=== PATIENT | female | born 1950 | race Caucasian/White ===

== ENCOUNTER → 2016-11-16 | Outpatient (REF) | payer BC ==
[2016-11-16 11:41] LABS: ALBUMIN 3.6 GM/DL (3.2-5.2); ALBUMIN/GLOBULIN RATIO 1.09 (1.00-1.93); BILIRUBIN,TOTAL 0.4 MG/DL (0.2-1.0); CALCIUM LEVEL 9.7 MG/DL (8.8-10.2); CREATININE FOR GFR 1.21 MG/DL (0.55-1.02); FREE T4 1.24 NG/DL (0.76-1.46); GLOMERULAR FILTRATION RATE 47.2 (>45); POTASSIUM SERUM 4.4 MEQ/L (3.5-5.1); TOTAL PROTEIN 6.9 GM/DL (6.4-8.2)
== END ==
LOC: M SFHCADAM 09:46
PROVIDERS: ATTEND Nurse Practitioner Family
DX: E11.8 Type 2 diabetes mellitus with unspecified complications (principal); E03.9 Hypothyroidism, unspecified

== ENCOUNTER → 2017-04-29 | Outpatient (REF) | payer BC ==
[~2017-04-29] MED LIST: DIOV80TA3 PO; GLIM4TAB PO; HYDR12.55; LEVO125T4; LEVO50TA45 PO; METF10004 PO; NORCOTAB PO; OMEP20CA3; PRAV40TA2; SITA50TAB PO
[2017-04-29 14:56] LABS: ALBUMIN 3.5 GM/DL (3.2-5.2); BILIRUBIN,TOTAL 0.3 MG/DL (0.2-1.0); CREATININE FOR GFR 1.32 MG/DL (0.55-1.02); FREE T4 1.15 NG/DL (0.76-1.46); GLOMERULAR FILTRATION RATE 42.7 (>45); POTASSIUM SERUM 4.4 MEQ/L (3.5-5.1)
== END ==
LOC: M LAB REF 12:49
PROVIDERS: ATTEND Nurse Practitioner Family
DX: I10 Essential (primary) hypertension (principal)

== ENCOUNTER 2017-05-28 07:56 | Emergency (ER) | payer BC, OTHER ==
[~2017-05-28] VITALS: Ht 170.2 cm; Wt 101.0 kg
[2017-05-28] MEDS ORDERED: METF10004 PO (08:11)
[2017-05-28] MEDS ORDERED: LEVO50TA45 PO (08:11)
[2017-05-28] MEDS ORDERED: SITA50TAB PO (08:11)
[2017-05-28] MEDS ORDERED: DIOV80TA3 PO (08:11)
[2017-05-28] MEDS ORDERED: GLIM4TAB PO (08:11)
[2017-05-28] MEDS ORDERED: HYDR12.55 (08:53)
[2017-05-28] MEDS ORDERED: OMEP20CA3 (08:53)
[2017-05-28] MEDS ORDERED: PRAV40TA2 (08:53)
[2017-05-28] MEDS ORDERED: LEVO125T4 (08:53)
--- NOTE | 2017-05-28 09:39 | REP ---
RIGHT KNEE SERIES: FOUR VIEWS. HISTORY: Trauma. No comparison views. FINDINGS: The patient was apparently unable to position herself for the sunrise view which is, therefore, not obtained. There is mild osteoarthritic spurring in the medial and lateral compartments and moderate spurring in the patellofemoral compartment. A fabella is noted posterolaterally. In addition, there are faint calcifications at the posterolateral joint line which could conceivably represent loose bodies. No fracture is seen. There is diffuse osteopenia. There is some irregularity on lateral radiograph in one of the anterior femoral condyles, however, this appears chronic. IMPRESSION: 1. Osteoarthritic changes. 2. Possible loose bodies posterolaterally. 3. No acute traumatic abnormality. Signed by Ranulfo Cid MD 05/28/2017 03:27 P
--- NOTE | 2017-05-28 09:44 | REP ---
Duplex extremity venous ultrasound: Right lower extremity. History: Tenderness to palpation in the popliteal region and right lower extremity edema. Question DVT. Findings: The deep veins are anechoic and fully compressible from the groin to the popliteal fossa in the right lower extremity. Color flow imaging is homogeneous. Spectral Doppler interrogation demonstrates intact respiratory variation in flow and normal manual augmentation of flow. There is no evidence of deep vein thrombosis. Impression: Negative right lower extremity duplex venous ultrasound. No evidence of deep vein thrombosis. Signed by Ranulfo Cid MD 05/28/2017 09:35 A
[2017-05-28] MEDS ORDERED: NORCOTAB PO (10:44)
[2017-05-28 11:06] VITALS: BP 190/92
== END 2017-05-28 11:07 | disposition home or self-care (01) ==
LOC: M ED 07:56
DX: M17.11 Unilateral primary osteoarthritis, right knee (principal); Z87.891 Personal history of nicotine dependence

== ENCOUNTER → 2017-07-31 | Outpatient (REF) | payer BC ==
[2017-07-31 13:41] LABS: ALBUMIN 3.7 GM/DL (3.2-5.2); ALBUMIN/GLOBULIN RATIO 1.09 (1.00-1.93); BILIRUBIN,TOTAL 0.2 MG/DL (0.2-1.0); CALCIUM LEVEL 9.7 MG/DL (8.8-10.2); CREATININE FOR GFR 1.36 MG/DL (0.55-1.02); FREE T4 0.99 NG/DL (0.76-1.46); GLOMERULAR FILTRATION RATE 41.2 (>45); POTASSIUM SERUM 4.5 MEQ/L (3.5-5.1); TOTAL PROTEIN 7.1 GM/DL (6.4-8.2)
== END ==
LOC: M SFHCADAM 08:24
PROVIDERS: ATTEND Nurse Practitioner Family
DX: E03.9 Hypothyroidism, unspecified (principal); E11.8 Type 2 diabetes mellitus with unspecified complications; E78.2 Mixed hyperlipidemia

== ENCOUNTER → 2017-09-04 | Outpatient (CLI) | payer BC | LOC: M RAD 15:42 | DX: N18.3 Chronic kidney disease, stage 3 (moderate) (principal); E11.22 Type 2 diabetes mellitus with diabetic chronic kidney disease | CPT/HCPCS: 76775 ==

== ENCOUNTER → 2017-09-16 | Outpatient (CLI) | payer BC | LOC: M RAD 13:48 | DX: N13.39 Other hydronephrosis (principal) ==

== ENCOUNTER → 2017-10-28 | Outpatient (REF) | payer BC ==
[2017-10-28 19:15] LABS: BACTERIA, URINE LARGE AMOUNT; RBC, URINE 0-1 /hpf (0-3); SQUAMOUS EPITHELIAL CELL URINE SMALL AMOUNT /hpf (SMALL AMT); TRANSITIONAL EPI CELLS, URINE SMALL AMOUNT /hpf; WBC, URINE TNTC /hpf (0-3)
[2017-10-28 19:16] LABS: MUCUS, URINE MOD AMOUNT (NEGATIVE)
[2017-10-28 19:17] LABS: MICROSCOPIC EXAM PERFORMED
== END ==
LOC: M LAB REF 16:54
DX: N18.3 Chronic kidney disease, stage 3 (moderate) (principal)
CPT/HCPCS: 81015

== ENCOUNTER → 2017-11-15 | Outpatient (REF) | payer BC ==
[2017-11-15 13:57] LABS: MAU/CREAT RATIO 41.8 MCG/MG (0.0-30.0)
[2017-11-15 14:00] LABS: ALBUMIN 3.6 GM/DL (3.2-5.2); ALBUMIN/GLOBULIN RATIO 1.03 (1.00-1.93); ALKALINE PHOSPHATASE 62 U/L (45-117); ALT/SGPT 35 U/L (12-78); ANION GAP 9 MEQ/L (8-16); AST/SGOT 26 U/L (7-37); BILIRUBIN,TOTAL 0.4 MG/DL (0.2-1.0); BLOOD UREA NITROGEN 43 MG/DL (7-18); CALCIUM LEVEL 9.6 MG/DL (8.8-10.2); CARBON DIOXIDE LEVEL 25 MEQ/L (21-32); CHLORIDE LEVEL 110 MEQ/L (98-107); FREE T4 0.93 NG/DL (0.76-1.46); GLOMERULAR FILTRATION RATE 31.8 (>45); GLUCOSE, FASTING 143 MG/DL (70-100); POTASSIUM SERUM 4.3 MEQ/L (3.5-5.1); SODIUM LEVEL 144 MEQ/L (136-145); THYROID STIMULATING HORMONE 0.587 uIU/ML (0.358-3.740); TOTAL PROTEIN 7.1 GM/DL (6.4-8.2)
[2017-11-15 14:12] LABS: ESTIMATED AVERAGE GLUCOSE 163 MG/DL (60-110); HEMOGLOBIN A1c 7.3 %
[2017-11-15 14:22] LABS: TOTAL 25(OH) VITAMIN D 50.8 NG/ML (30.0-100.0)
== END ==
LOC: M SFHCPLAZ 08:06
DX: E11.8 Type 2 diabetes mellitus with unspecified complications (principal); E03.9 Hypothyroidism, unspecified; E55.9 Vitamin D deficiency, unspecified
CPT/HCPCS: 84443

== ENCOUNTER → 2018-02-18 | Outpatient (REF) | payer BC ==
[2018-02-18 13:19] LABS: ALBUMIN 3.5 GM/DL (3.2-5.2); ALKALINE PHOSPHATASE 65 U/L (45-117); ALT/SGPT 35 U/L (12-78); ANION GAP 8 MEQ/L (8-16); AST/SGOT 21 U/L (7-37); BILIRUBIN,TOTAL 0.3 MG/DL (0.2-1.0); BLOOD UREA NITROGEN 30 MG/DL (7-18); CALCIUM LEVEL 8.8 MG/DL (8.8-10.2); CARBON DIOXIDE LEVEL 26 MEQ/L (21-32); CHLORIDE LEVEL 111 MEQ/L (98-107); CREATININE FOR GFR 1.38 MG/DL (0.55-1.30); FREE T4 0.89 NG/DL (0.76-1.46); GLOMERULAR FILTRATION RATE 40.5 (>45); GLUCOSE, FASTING 146 MG/DL (70-100); POTASSIUM SERUM 4.5 MEQ/L (3.5-5.1); SODIUM LEVEL 145 MEQ/L (136-145)
[2018-02-18 13:41] LABS: MAU/CREAT RATIO 84.6 MCG/MG (0.0-30.0)
== END ==
LOC: M SFHCADAM 08:05
DX: E03.9 Hypothyroidism, unspecified (principal)

== ENCOUNTER → 2018-05-05 | Outpatient (REF) | payer BC ==
[2018-05-05 13:24] LABS: BACTERIA, URINE AUTO 1+ (NEGATIVE); MUCUS, URINE SMALL (NEGATIVE); RBC, URINE AUTO 1 /HPF (0-3); SQUAMOUS EPITHELIAL CELL UR AU 0 /HPF (0-6); WBC, URINE AUTO 21 /HPF (0-3)
== END ==
LOC: M LAB REF 13:00
DX: N18.3 Chronic kidney disease, stage 3 (moderate) (principal); R31.29 Other microscopic hematuria

== ENCOUNTER → 2018-06-21 | Outpatient (REF) | payer BC ==
[2018-06-21 13:51] LABS: ALBUMIN 3.8 GM/DL (3.2-5.2); ALBUMIN/GLOBULIN RATIO 1.12 (1.00-1.93); ALKALINE PHOSPHATASE 71 U/L (45-117); ALT/SGPT 37 U/L (12-78); ANION GAP 6 MEQ/L (8-16); AST/SGOT 25 U/L (7-37); BILIRUBIN,TOTAL 0.4 MG/DL (0.2-1.0); BLOOD UREA NITROGEN 36 MG/DL (7-18); CALCIUM LEVEL 9.4 MG/DL (8.8-10.2); CARBON DIOXIDE LEVEL 28 MEQ/L (21-32); CHLORIDE LEVEL 111 MEQ/L (98-107); CHOLESTEROL LEVEL 153 MG/DL (<200); CHOLESTEROL RISK RATIO 3.122 (<5); CREATININE FOR GFR 1.35 MG/DL (0.55-1.30); FREE T4 0.83 NG/DL (0.76-1.46); GLOMERULAR FILTRATION RATE 41.4 (>45); GLUCOSE, FASTING 153 MG/DL (70-100); HDL CHOLESTEROL 49 MG/DL (>40); LDL CHOLESTEROL 77 MG/DL (<100); NON-HDL-C 104 MG/DL; POTASSIUM SERUM 4.4 MEQ/L (3.5-5.1); SODIUM LEVEL 145 MEQ/L (136-145); TOTAL PROTEIN 7.2 GM/DL (6.4-8.2); TRIGLYCERIDES LEVEL 136 MG/DL (<150)
[2018-06-23 10:00] LABS: TOTAL 25(OH) VITAMIN D 36.1 NG/ML (30.0-100.0)
== END ==
LOC: M SFHCADAM 09:13
DX: E11.22 Type 2 diabetes mellitus with diabetic chronic kidney disease (principal); E03.9 Hypothyroidism, unspecified; E78.2 Mixed hyperlipidemia; E55.9 Vitamin D deficiency, unspecified
CPT/HCPCS: 84443

== ENCOUNTER → 2018-06-30 | Outpatient (CLI) | payer BC | LOC: M WHC 14:37 | DX: Z12.31 Encounter for screening mammogram for malignant neoplasm of breast (principal) | CPT/HCPCS: 77067 ==

== ENCOUNTER → 2018-10-16 | Outpatient (CLI) | payer BC ==
[~2018-10-16] MED LIST changes: +CALC600T57 PO; -LEVO125T4; +LEVO125T4 PO; +LOSA50TA88 PO; +OMEG10002 PO; +ONETAB35 PO; +PEPCCHW3 PO; -PRAV40TA2; +PRAV40TA2 PO; +SYST1SOL OP; +VITA-122 PO
[2018-10-16 19:34] LABS: CALCIUM LEVEL 9.4 MG/DL (8.8-10.2); CREATININE FOR GFR 1.43 MG/DL (0.55-1.30); GLOMERULAR FILTRATION RATE 38.7 (>45); POTASSIUM SERUM 4.1 MEQ/L (3.5-5.1)
[2018-10-16 19:46] LABS: MEAN CORPUSCULAR HEMOGLOBIN 33.1 pg (27.0-33.0); MEAN CORPUSCULAR HGB CONC 33.3 g/dl (32.0-36.5); MEAN CORPUSCULAR VOLUME 99.4 fl (80.0-96.0); PLATELET COUNT, AUTOMATED 226 10^3/uL (150-450); RED BLOOD COUNT 3.62 10^6/uL (4.00-5.40); WHITE BLOOD COUNT 7.7 10^3/uL (4.0-10.0)
== END ==
LOC: M LABDRWAD 16:31
PROVIDERS: ATTEND Podiatrist Foot & Ankle Surgery
DX: M25.541 Pain in joints of right hand (principal)

== ENCOUNTER 2018-10-29 08:33 | Day surgery (SDC) | payer BC ==
[~2018-10-29] VITALS: Ht 170.2 cm; Wt 91.6 kg
[~2018-10-29 08:33] MED LIST changes: +BUPIVACAINE HCL 0.5% 10 ML VIAL As Ordered ONE; +LIDOCAINE 1% MDV 20ML VIAL As Ordered ONE; +LR 1,000 ML IV ONE; +dexameTHASONE 4 MG/ML 1ML VIAL (J1100) As Ordered ONE
[2018-10-29] MEDS ORDERED: ONDANSETRON 4MG/2ML VIAL (J2405) As Ordered ONE (10:23)
[2018-10-29] MEDS ORDERED: LIDOCAINE 2% INJ 100 MG/5 ML SDV (FOR ANES.) As Ordered ONE (10:23)
[2018-10-29] MEDS ORDERED: PROPOFOL 200 MG/20 ML VIAL As Ordered ONE (10:23)
[2018-10-29] MEDS ORDERED: dexameTHASONE 4 MG/ML 1ML VIAL (J1100) As Ordered ONE (10:23)
[2018-10-29] MEDS ORDERED: MIDAZOLAM INJ 2 MG/2 ML VIAL (J2250) As Ordered ONE (10:25)
[2018-10-29] MEDS ORDERED: fentaNYL 100 MCG/2 ML INJECTION (J3010) As Ordered ONE (10:25)
[2018-10-29] MEDS ORDERED: HYDR-3713 PO (12:13)
[2018-10-29 13:00] VITALS: BP 155/83
--- NOTE | 2018-10-29 13:37 | RO ---
DATE OF PROCEDURE: 10/29/2018 PREPROCEDURE DIAGNOSIS: Right second metatarsal deformity and osteoarthritis. POSTPROCEDURE DIAGNOSIS: Right second metatarsal deformity and osteoarthritis. PROCEDURE: Right second metatarsal palangeal joint cheilectomy and osteotomy. SURGEON: Dr. Ian Miller [place] GROOM: None. ANESTHESIA: Monitored anesthesia care. Preoperative injection of 15 mL of 1:1 mixture of 1% lidocaine plain and 0.5% Marcaine plain. ESTIMATED BLOOD LOSS: Minimal. MATERIALS: #4-0 Vicryl, $4-0 nylon, and an Arthrex 2.5 headless compression screw. COMPLICATIONS: None. CONDITION: Stable. Ale Banks is a 68-year-old female who presents to [facility] with the complaints of painful second toe joint. She has had previous surgery to this site and about 1 years ago, she sustained injury causing fracture to the toe. She initially healed well but has subsequently developed worsening arthritis and pain. She presents today for surgical correction. The patient's side and site were identified and marked in the preoperative holding area. Consent was reviewed and obtained. All risks, complications and alternatives to the procedure were explained to the patient in detail and all questions were answered. DESCRIPTION OF PROCEDURE: The patient was brought to the operating room and placed on the operating room table in the supine position. Monitored anesthesia care was carried out by the anesthesia team. Preoperative injection of 15 mL of 1:1 mixture of 1% lidocaine plain and 0.5% Marcaine plain was injected into the right foot. The right foot was prepped and draped in the normal sterile fashion. The patient received Ancef preoperatively. A tourniquet was applied to right ankle and inflated to 250 mmHg. A dorsal incision was carried through over the previous scar and site over the second toe and metatarsophalangeal joint. This was carried through with a #15 blade. Significant scar tissue was immediately identified. Dissection was taken to find the extensor tendon which was in poor condition with some tears apparently coming from the osteophytes immediately beneath the extensor tendon, which was then retracted where large osteophytes over the dorsal surface of the joint. These were dissected and removed with rongeur. The metatarsal head and base had large exostoses which were removed with rongeur and smoothed with a rasp. There is significant cartilage erosion on both sides of the joint. There is some remaining viable cartilage, which was displaced medially likely from fracture. An osteotomy was then performed in the second metatarsal head and neck transposing it proximally as well as rotating the cartilage surface forward. This was fixated with an Arthrex 2.5 mm screw. The remaining bone ledge was resected with rongeur and smoothed with a rasp. The plate was irrigated with normal saline. Capsular repair was performed with #3-0 Vicryl. The extensor tendon was repaired with #3-0 Vicryl. Subcutaneous closure with #4-0 Vicryl and skin closure with #4-0 nylon. 1 mL Decadron was injected. Sterile dressing was applied. The tourniquet was deflated. Patient was brought to the postanesthesia care unit (PACU) with vital signs stable and neurovascular status intact. She will be partial weightbearing as tolerated. She will followup in the office in two days. CHE
== END 2018-10-29 13:10 | disposition home or self-care (01) ==
LOC: M SDC 08:33
PROVIDERS: ATTEND Podiatrist Foot & Ankle Surgery
DX: M19.071 Primary osteoarthritis, right ankle and foot (principal); M21.6X1 Other acquired deformities of right foot; E11.9 Type 2 diabetes mellitus without complications; I10 Essential (primary) hypertension; E78.5 Hyperlipidemia, unspecified; E03.9 Hypothyroidism, unspecified; K21.9 Gastro-esophageal reflux disease without esophagitis; Z87.891 Personal history of nicotine dependence; Z79.899 Other long term (current) drug therapy
CPT/HCPCS: 28308; 28899; 88300; 97116; C1713; J0690; J1100; J2250; J2405; J3010

== ENCOUNTER → 2018-12-26 | Outpatient (REF) | payer BC ==
[~2018-12-26] MED LIST changes: -BUPIVACAINE HCL 0.5% 10 ML VIAL As Ordered ONE; +HYDR-3713 PO; +HYDR-3715 PO; -LIDOCAINE 1% MDV 20ML VIAL As Ordered ONE; -LR 1,000 ML IV ONE; -NORCOTAB PO; -dexameTHASONE 4 MG/ML 1ML VIAL (J1100) As Ordered ONE
[2018-12-26 13:41] LABS: MAU/CREAT RATIO 152.3 MCG/MG (0.0-30.0)
[2018-12-26 14:52] LABS: HEMOGLOBIN A1c 9.3 %
[2018-12-26 15:00] LABS: ALBUMIN 3.5 GM/DL (3.2-5.2); BILIRUBIN,TOTAL 0.5 MG/DL (0.2-1.0); CREATININE FOR GFR 1.35 MG/DL (0.55-1.30); FREE T4 1.11 NG/DL (0.76-1.46); GLOMERULAR FILTRATION RATE 41.4 (>45); POTASSIUM SERUM 4.7 MEQ/L (3.5-5.1); THYROID STIMULATING HORMONE 4.57 uIU/ML (0.358-3.740); TOTAL 25(OH) VITAMIN D 47.4 NG/ML (30.0-100.0)
== END ==
LOC: M SFHCADAM 08:03
PROVIDERS: ATTEND Nurse Practitioner Family
DX: E11.22 Type 2 diabetes mellitus with diabetic chronic kidney disease (principal); E03.9 Hypothyroidism, unspecified; E55.9 Vitamin D deficiency, unspecified

== ENCOUNTER → 2019-03-05 | Outpatient (REF) | payer BC ==
[~2019-03-05] MED LIST changes: -OMEP20CA3; +OMEP20CA4
[2019-03-05 15:12] LABS: BACTERIA, URINE AUTO NEGATIVE (NEGATIVE); MUCUS, URINE SMALL (NEGATIVE); RBC, URINE AUTO 0 /HPF (0-3); SQUAMOUS EPITHELIAL CELL UR AU 0 /HPF (0-6); WBC, URINE AUTO 2 /HPF (0-3)
== END ==
LOC: M LAB REF 13:32
PROVIDERS: ATTEND Internal Medicine Nephrology
DX: N18.3 Chronic kidney disease, stage 3 (moderate) (principal)

== ENCOUNTER → 2019-04-03 | Outpatient (REF) | payer BC ==
[~2019-04-03] MED LIST changes: +LANTINJ4 SC
[2019-04-03 13:37] LABS: ALBUMIN 3.6 GM/DL (3.2-5.2); BILIRUBIN,TOTAL 0.3 MG/DL (0.2-1.0); CALCIUM LEVEL 9.2 MG/DL (8.8-10.2); CREATININE FOR GFR 1.45 MG/DL (0.55-1.30); FREE T4 1.13 NG/DL (0.76-1.46); GLOMERULAR FILTRATION RATE 38.1 (>45); HEMOGLOBIN A1c 6.8 %; POTASSIUM SERUM 4.8 MEQ/L (3.5-5.1); THYROID STIMULATING HORMONE 1.76 uIU/ML (0.358-3.740)
[2019-04-03 13:45] LABS: MAU/CREAT RATIO 140.1 MCG/MG (0.0-30.0)
== END ==
LOC: M SFHCADAM 08:09
PROVIDERS: ATTEND Nurse Practitioner Family
DX: E11.22 Type 2 diabetes mellitus with diabetic chronic kidney disease (principal); E03.9 Hypothyroidism, unspecified

== ENCOUNTER 2019-04-23 07:50 | Day surgery (SDC) | payer BC ==
[~2019-04-23] VITALS: Ht 170.2 cm; Wt 88.4 kg
[2019-04-23] MEDS ORDERED: NS 1,000 ML IV ONE (08:30)
[2019-04-23] MEDS ORDERED: PROPOFOL 200 MG/20 ML VIAL As Ordered ONE ×4 (08:54→09:29)
--- NOTE | 2019-04-23 09:54 | ROOR ---
Patient Name: Ale Banks Procedure Date: 04/23/2019 8:52 AM Date of : 1950 Age: 68 Room: [facility] Gender: Female Note Status: Finalized Procedure: Colonoscopy Indications: High risk colon cancer surveillance: Personal history of colonic polyps Providers: Adriano CORREA MD Referring MD: Nicky Banks NP Requesting Provider: Medicines: Monitored Anesthesia Care Complications: No immediate complications. Procedure: Pre-Anesthesia Assessment: - The heart rate, respiratory rate, oxygen saturations, blood pressure, adequacy of pulmonary ventilation, and response to care were monitored throughout the procedure. The Colonoscope was introduced through the anus and advanced to the terminal ileum, with identification of the appendiceal orifice and IC valve. The colonoscopy was performed without difficulty. The patient tolerated the procedure well. The quality of the bowel preparation was good. Findings: The perianal and digital rectal examinations were normal. Four flat polyps were found in the ascending colon and cecum. The polyps were 8 to 12 mm in size. Area was successfully injected with 5 mL Eleview for a lift polypectomy. These polyps were removed with a piecemeal technique using a hot snare. Resection and retrieval were complete. A 8 mm polyp was found in the splenic flexure. The polyp was flat. The polyp was removed with a piecemeal technique using a cold snare. Resection and retrieval were complete. Mild sigmoid diverticulosis and small internal hemorrhoids. Impression: - Four 8 to 12 mm polyps in the ascending colon and in the cecum, removed piecemeal using a hot snare. Resected and retrieved. Injected. - One 8 mm polyp at the splenic flexure, removed piecemeal using a cold snare. Resected and retrieved. - Mild sigmoid diverticulosis and small internal hemorrhoids. - The examination was otherwise normal. Recommendation: - Await pathology results. - Telephone endoscopist for pathology results in 2 weeks. - Repeat colonoscopy in 1-3 years for surveillance based on pathology results. Adriano Correa MD Adriano CORREA MD 04/23/2019 9:54:00 AM Electronically signed by Adriano CORREA MD Number of Addenda: 0 Note Initiated On: 04/23/2019 8:52 AM Estimated Blood Loss: Estimated blood loss: none.
[2019-04-23 10:16] VITALS: BP 163/88
== END 2019-04-23 10:50 | disposition home or self-care (01) ==
LOC: M OPP 07:50
PROVIDERS: ATTEND Internal Medicine Gastroenterology
DX: Z86.010 Personal history of colon polyps (principal); D12.2 Benign neoplasm of ascending colon; D12.0 Benign neoplasm of cecum; D12.3 Benign neoplasm of transverse colon; E11.9 Type 2 diabetes mellitus without complications; Z79.4 Long term (current) use of insulin; Z79.891 Long term (current) use of opiate analgesic; Z79.899 Other long term (current) drug therapy; Z88.5 Allergy status to narcotic agent

== ENCOUNTER → 2019-07-04 | Outpatient (REF) | payer BC ==
[~2019-07-04] MED LIST changes: -GLIM4TAB PO; +GLIM4TAB3 PO
[2019-07-04 13:19] LABS: ALBUMIN 3.7 GM/DL (3.2-5.2); BILIRUBIN,TOTAL 0.5 MG/DL (0.2-1.0); CALCIUM LEVEL 9.6 MG/DL (8.8-10.2); CHOLESTEROL RISK RATIO 2.452 (<5); CREATININE FOR GFR 1.32 MG/DL (0.55-1.30); FREE T4 1.02 NG/DL (0.76-1.46); GLOMERULAR FILTRATION RATE 42.4 (>39); POTASSIUM SERUM 4.6 MEQ/L (3.5-5.1); THYROID STIMULATING HORMONE 1.49 uIU/ML (0.358-3.740)
== END ==
LOC: M SFHCADAM 08:03
PROVIDERS: ATTEND Nurse Practitioner Family
DX: E11.22 Type 2 diabetes mellitus with diabetic chronic kidney disease (principal); E03.9 Hypothyroidism, unspecified; E78.2 Mixed hyperlipidemia

== ENCOUNTER → 2019-09-15 | Outpatient (REF) | payer BC ==
[~2019-09-15] MED LIST changes: -GLIM4TAB3 PO; +GLIM4TAB5 PO; +OMEP1CAP73; -OMEP20CA4
[2019-09-15 17:52] LABS: ALBUMIN 3.9 GM/DL (3.2-5.2); BILIRUBIN,TOTAL 0.5 MG/DL (0.2-1.0); CALCIUM LEVEL 9.7 MG/DL (8.8-10.2); CREATININE FOR GFR 1.48 MG/DL (0.55-1.30); FREE T4 1.1 NG/DL (0.76-1.46); GLOMERULAR FILTRATION RATE 37.1 (>39); POTASSIUM SERUM 4.5 MEQ/L (3.5-5.1); THYROID STIMULATING HORMONE 6.41 uIU/ML (0.358-3.740); TOTAL PROTEIN 7.2 GM/DL (6.4-8.2)
== END ==
LOC: M SFHCADAM 14:52
PROVIDERS: ATTEND Nurse Practitioner Family
DX: E11.22 Type 2 diabetes mellitus with diabetic chronic kidney disease (principal); E03.9 Hypothyroidism, unspecified

== ENCOUNTER → 2019-11-27 | Outpatient (REF) | payer BC ==
[2019-11-27 10:46] LABS: ALBUMIN 3.6 GM/DL (3.2-5.2); BILIRUBIN,TOTAL 0.5 MG/DL (0.2-1.0); CALCIUM LEVEL 9.7 MG/DL (8.8-10.2); CHOLESTEROL RISK RATIO 2.614 (<5); CREATININE FOR GFR 1.2 MG/DL (0.55-1.30); FREE T4 0.86 NG/DL (0.76-1.46); GLOMERULAR FILTRATION RATE 47.3 (>39); MAGNESIUM LEVEL 2.1 MG/DL (1.8-2.4); POTASSIUM SERUM 4.7 MEQ/L (3.5-5.1); THYROID STIMULATING HORMONE 2.56 uIU/ML (0.358-3.740); TOTAL PROTEIN 7.3 GM/DL (6.4-8.2)
[2019-11-27 10:48] LABS: TOTAL 25(OH) VITAMIN D 52.1 NG/ML (30.0-100.0)
[2019-11-27 10:56] LABS: HEMOGLOBIN A1c 7.3 %
[2019-11-27 11:15] LABS: MAU/CREAT RATIO 117.3 MCG/MG (0.0-30.0)
== END ==
LOC: M SFHCADAM 08:16
PROVIDERS: ATTEND Nurse Practitioner Family
DX: E11.22 Type 2 diabetes mellitus with diabetic chronic kidney disease (principal); N18.9 Chronic kidney disease, unspecified; E03.9 Hypothyroidism, unspecified; E78.2 Mixed hyperlipidemia; M62.830 Muscle spasm of back

== ENCOUNTER → 2020-05-27 | Outpatient (REF) | payer BC ==
[2020-05-27 14:00] LABS: ALBUMIN 3.6 GM/DL (3.2-5.2); BILIRUBIN,TOTAL 0.4 MG/DL (0.2-1.0); CALCIUM LEVEL 9.6 MG/DL (8.8-10.2); CREATININE FOR GFR 1.26 MG/DL (0.55-1.30); FREE T4 1.11 NG/DL (0.76-1.46); GLOMERULAR FILTRATION RATE 44.6 (>39); POTASSIUM SERUM 4.6 MEQ/L (3.5-5.1); THYROID STIMULATING HORMONE 0.287 uIU/ML (0.358-3.740); TOTAL PROTEIN 7.1 GM/DL (6.4-8.2)
[2020-05-27 14:03] LABS: MAU/CREAT RATIO 166.9 MCG/MG (0.0-30.0)
== END ==
LOC: M SFHCADAM 08:14
PROVIDERS: ATTEND Nurse Practitioner Family
DX: E11.22 Type 2 diabetes mellitus with diabetic chronic kidney disease (principal); E03.9 Hypothyroidism, unspecified; N18.30 Chronic kidney disease, stage 3 unspecified

== ENCOUNTER → 2020-11-30 | Outpatient (REF) | payer BC ==
[2020-11-30 14:27] LABS: ALBUMIN 3.9 GM/DL (3.2-5.2); BILIRUBIN,TOTAL 0.4 MG/DL (0.2-1.0); CALCIUM LEVEL 9.9 MG/DL (8.8-10.2); CHOLESTEROL RISK RATIO 2.948 (<5); CREATININE FOR GFR 1.3 MG/DL (0.55-1.30); FREE T4 1.03 NG/DL (0.76-1.46); POTASSIUM SERUM 4.4 MEQ/L (3.5-5.1); THYROID STIMULATING HORMONE 2.26 uIU/ML (0.358-3.740); TOTAL 25(OH) VITAMIN D 35.7 NG/ML (30.0-100.0); TOTAL PROTEIN 7.4 GM/DL (6.4-8.2)
[2020-11-30 14:42] LABS: HEMOGLOBIN A1c 6.7 %
== END ==
LOC: M SFHCADAM 08:03
PROVIDERS: ATTEND Nurse Practitioner Family
DX: E03.9 Hypothyroidism, unspecified (principal); I10 Essential (primary) hypertension; E11.22 Type 2 diabetes mellitus with diabetic chronic kidney disease; E78.2 Mixed hyperlipidemia; E55.9 Vitamin D deficiency, unspecified

== ENCOUNTER → 2021-11-13 | Outpatient (REF) | payer BC ==
[~2021-11-13] MED LIST changes: +LOSA50TA28 PO; -LOSA50TA88 PO
[2021-11-13 12:40] LABS: MAU/CREAT RATIO 180.5 MCG/MG (0.0-30.0)
[2021-11-13 13:18] LABS: ALBUMIN 3.7 GM/DL (3.2-5.2); BILIRUBIN,TOTAL 0.4 MG/DL (0.2-1.0); CALCIUM LEVEL 9.5 MG/DL (8.8-10.2); CHOLESTEROL RISK RATIO 2.684 (<5); CREATININE FOR GFR 1.34 MG/DL (0.55-1.30); FREE T4 1.02 NG/DL (0.76-1.46); GLOMERULAR FILTRATION RATE 41.4 (>39); POTASSIUM SERUM 4.7 MEQ/L (3.5-5.1); THYROID STIMULATING HORMONE 0.837 uIU/ML (0.358-3.740); TOTAL PROTEIN 7.1 GM/DL (6.4-8.2)
[2021-11-13 13:22] LABS: TOTAL 25(OH) VITAMIN D 44.3 NG/ML (30.0-100.0)
[2021-11-13 14:24] LABS: HEMOGLOBIN A1c 7.5 %
== END ==
LOC: M LABDRWAD 11:57
PROVIDERS: ATTEND Nurse Practitioner Adult Health
DX: E78.2 Mixed hyperlipidemia (principal); E11.22 Type 2 diabetes mellitus with diabetic chronic kidney disease; E03.9 Hypothyroidism, unspecified; E55.9 Vitamin D deficiency, unspecified

== ENCOUNTER → 2022-05-11 | Outpatient (REF) | payer BC ==
[~2022-05-11] MED LIST changes: -SYST1SOL OP; +SYST1SOL OU; +VITA100093 PO
[2022-05-11 14:34] LABS: HEMATOCRIT 39.8 % (36.0-47.0); MEAN CORPUSCULAR HEMOGLOBIN 32.7 pg (27.0-33.0); MEAN CORPUSCULAR HGB CONC 32.7 g/dl (32.0-36.5); MEAN CORPUSCULAR VOLUME 100.3 fl (80.0-96.0); PLATELET COUNT, AUTOMATED 245 10^3/uL (150-450); RED BLOOD COUNT 3.97 10^6/uL (4.00-5.40); WHITE BLOOD COUNT 7.1 10^3/uL (4.0-10.0)
[2022-05-11 15:17] LABS: ALBUMIN 3.6 GM/DL (3.2-5.2); BILIRUBIN,TOTAL 0.4 MG/DL (0.2-1.0); CALCIUM LEVEL 9.5 MG/DL (8.8-10.2); CHOLESTEROL RISK RATIO 2.491 (<5); CREATININE FOR GFR 1.48 MG/DL (0.55-1.30); GLOMERULAR FILTRATION RATE 36.9 (>39); POTASSIUM SERUM 4.6 MEQ/L (3.5-5.1); TOTAL PROTEIN 7.3 GM/DL (6.4-8.2)
[2022-05-11 15:31] LABS: MAU/CREAT RATIO 146.2 MCG/MG (0.0-30.0)
[2022-05-11 15:44] LABS: TOTAL 25(OH) VITAMIN D 64.1 NG/ML (30.0-100.0)
[2022-05-11 16:22] LABS: HEMOGLOBIN A1c 6.5 %
== END ==
LOC: M LABDRWAD 12:32
PROVIDERS: ATTEND Nurse Practitioner Adult Health
DX: E11.22 Type 2 diabetes mellitus with diabetic chronic kidney disease (principal); E55.9 Vitamin D deficiency, unspecified; I10 Essential (primary) hypertension; E78.2 Mixed hyperlipidemia

== ENCOUNTER → 2022-05-20 | Outpatient (CLI) | payer BC | LOC: M LABSMTC 10:14 | PROVIDERS: ATTEND Anesthesiology | DX: Z01.812 Encounter for preprocedural laboratory examination (principal); Z11.52 Encounter for screening for COVID-19 ==

== ENCOUNTER 2022-05-23 06:48 | Day surgery (SDC) | payer BC ==
[~2022-05-23] VITALS: Ht 170.2 cm; Wt 91.5 kg
[~2022-05-23 06:48] MED LIST changes: +ceFAZolin SOD 2 GM in IV 1 EA IV ONE
[2022-05-23] MEDS ORDERED: INSULIN LISPRO (NovoLOG) PER UNIT SC PRN (07:25)
[2022-05-23] MEDS ORDERED: LR 1,000 ML IV SCH ×2 (07:25→12:15)
[2022-05-23] MEDS ORDERED: dexameTHASONE 4 MG/ML 1ML VIAL (J1100 PER 1MG) As Ordered ONE (08:07)
[2022-05-23] MEDS ORDERED: ONDANSETRON 4MG 2ML VIAL As Ordered ONE (08:07)
[2022-05-23] MEDS ORDERED: fentaNYL 250 MCG/5 ML INJECTION As Ordered ONE (08:07)
[2022-05-23] MEDS ORDERED: propofoL 200 MG/20 ML VIAL As Ordered ONE (08:07)
[2022-05-23] MEDS ORDERED: MIDAZOLAM INJ 2MG/2ML VIAL (J2250 PER 1MG) As Ordered ONE (08:07)
[2022-05-23] MEDS ORDERED: LIDOCAINE 2% 100MG/5ML SDV (FOR ANES.) As Ordered ONE (08:07)
[2022-05-23] MEDS ORDERED: LIDOCAINE 1% SDV 30ML VIAL As Ordered ONE (09:27)
[2022-05-23] MEDS ORDERED: BUPIVACAINE HCL 0.5% 30ML VIAL As Ordered ONE (09:28)
[2022-05-23] MEDS ORDERED: METOCLOPRAMIDE INJ 10MG/2ML VIAL (J2765 PER 1) As Ordered ONE (10:11)
[2022-05-23] MEDS ORDERED: ACETAMINOPHEN 1000MG 100ML IV BTL (OFIRMEV) (J0131 PER 10MG) As Ordered ONE (10:11)
[2022-05-23] MEDS ORDERED: ePHEDrine SULFATE 25 MG/5 ML(5MG/ML) SYRINGE As Ordered ONE (10:11)
[2022-05-23] MEDS ORDERED: PROMETHAZINE 25MG/ML 1ML VIAL IV PRN (12:15)
[2022-05-23] MEDS ORDERED: oxyCODONE 5MG TAB PO PRN (12:15)
[2022-05-23] MEDS ORDERED: ONDANSETRON 4MG 2ML VIAL IV PRN (12:15)
[2022-05-23 13:30] VITALS: BP 135/69
== END 2022-05-23 13:47 | disposition home or self-care (01) ==
LOC: M SDC 06:48
PROVIDERS: ATTEND Podiatrist Foot & Ankle Surgery
DX: M21.612 Bunion of left foot (principal); M20.12 Hallux valgus (acquired), left foot; M20.42 Other hammer toe(s) (acquired), left foot; I12.9 Hypertensive chronic kidney disease with stage 1 through stage 4 chronic kidney disease, or unspecified chronic kidney disease; E11.22 Type 2 diabetes mellitus with diabetic chronic kidney disease; E03.9 Hypothyroidism, unspecified; E78.2 Mixed hyperlipidemia; N18.32 Chronic kidney disease, stage 3b; K76.0 Fatty (change of) liver, not elsewhere classified; M51.9 Unspecified thoracic, thoracolumbar and lumbosacral intervertebral disc disorder; Z79.899 Other long term (current) drug therapy; Z79.4 Long term (current) use of insulin; Z79.890 Hormone replacement therapy; Z79.84 Long term (current) use of oral hypoglycemic drugs; Z88.5 Allergy status to narcotic agent; Z88.8 Allergy status to other drugs, medicaments and biological substances
CPT/HCPCS: 28010; 28285; 28297; 28298; 28308; 88300; 97116; 97161; C1713; J0131; J0690; J2250; J2405; J2765; J3010

== ENCOUNTER 2023-01-24 07:46 | Day surgery (SDC) | payer BC ==
[~2023-01-24] VITALS: Ht 170.2 cm; Wt 90.1 kg
[~2023-01-24 07:46] MED LIST changes: +EXCETAB32 PO; +NS 1,000 ML IV ONE; -ceFAZolin SOD 2 GM in IV 1 EA IV ONE
[2023-01-24] MEDS ORDERED: LIDOCAINE 2% 100MG/5ML SDV (FOR ANES.) As Ordered ONE (09:07)
[2023-01-24] MEDS ORDERED: propofoL 200 MG/20 ML VIAL As Ordered ONE ×2 (09:08→10:04)
[2023-01-24] MEDS ORDERED: ATROPINE SULF 0.4 MG/ML 1ML VIAL As Ordered ONE (09:31)
[2023-01-24 10:28] VITALS: BP 178/82
== END 2023-01-24 10:31 | disposition home or self-care (01) ==
LOC: M OPP 07:46
PROVIDERS: ATTEND Internal Medicine Gastroenterology
DX: Z86.010 Personal history of colon polyps (principal); D12.2 Benign neoplasm of ascending colon; D17.79 Benign lipomatous neoplasm of other sites; K57.30 Diverticulosis of large intestine without perforation or abscess without bleeding; K64.8 Other hemorrhoids; I10 Essential (primary) hypertension; E78.5 Hyperlipidemia, unspecified; E11.9 Type 2 diabetes mellitus without complications; E03.9 Hypothyroidism, unspecified; K21.9 Gastro-esophageal reflux disease without esophagitis; M19.90 Unspecified osteoarthritis, unspecified site; G43.909 Migraine, unspecified, not intractable, without status migrainosus; Z87.891 Personal history of nicotine dependence; Z88.5 Allergy status to narcotic agent; Z79.4 Long term (current) use of insulin; Z79.84 Long term (current) use of oral hypoglycemic drugs; Z79.890 Hormone replacement therapy; Z79.899 Other long term (current) drug therapy; Z82.49 Family history of ischemic heart disease and other diseases of the circulatory system; Z80.51 Family history of malignant neoplasm of kidney; Z80.8 Family history of malignant neoplasm of other organs or systems
CPT/HCPCS: 45385; 88305; J0461

== ENCOUNTER 2023-04-08 19:23 | Emergency (ER) | payer BC ==
[~2023-04-08] VITALS: Ht 170.2 cm; Wt 93.6 kg
[~2023-04-08 19:23] MED LIST changes: -NS 1,000 ML IV ONE
[2023-04-08 20:09] VITALS: TEMP 96.6
[2023-04-08] MEDS ORDERED: ONDANSETRON 4MG 2ML VIAL IV ONE (20:35)
[2023-04-08] MEDS: MORPHINE 4 MG/ML 1ML VIAL IV PRN ×2 (20:38→21:51)
[2023-04-08] MEDS ORDERED: KETAMINE HCL 200MG/20ML VIAL IV ONE (22:05)
[2023-04-08] MEDS ORDERED: NS 1,000 ML IV SCH (22:05)
[2023-04-08] MEDS ORDERED: propofoL 200 MG/20 ML VIAL IV.PROC PRN (22:05)
[2023-04-08 23:00] VITALS: BP 178/89; O2SAT 97
== END 2023-04-09 01:40 | disposition home or self-care (01) ==
LOC: M ED 19:23 → EDBD 19:23 → M ED 04-09 01:40
DX: S43.004A Unspecified dislocation of right shoulder joint, initial encounter (principal); W01.0XXA Fall on same level from slipping, tripping and stumbling without subsequent striking against object, initial encounter; Y92.009 Unspecified place in unspecified non-institutional (private) residence as the place of occurrence of the external cause; Y93.01 Activity, walking, marching and hiking; Y99.8 Other external cause status; E03.9 Hypothyroidism, unspecified; E11.9 Type 2 diabetes mellitus without complications; E78.2 Mixed hyperlipidemia; N18.9 Chronic kidney disease, unspecified; E66.9 Obesity, unspecified; Z88.5 Allergy status to narcotic agent; Z79.899 Other long term (current) drug therapy; Z79.4 Long term (current) use of insulin; Z79.82 Long term (current) use of aspirin
CPT/HCPCS: 23655; 73020; 73030; 73060; 73090; 93041; 94760; 96361; 96365; 96375; 99152; 99285; J2405

== ENCOUNTER → 2023-05-06 | Outpatient (REF) | payer BC ==
[2023-05-06 13:33] LABS: HEMATOCRIT 38.3 % (36.0-47.0); HEMOGLOBIN 12.5 g/dl (12.0-15.5); MEAN CORPUSCULAR HEMOGLOBIN 33.2 pg (27.0-33.0); MEAN CORPUSCULAR HGB CONC 32.6 g/dl (32.0-36.5); MEAN CORPUSCULAR VOLUME 101.6 fl (80.0-96.0); PLATELET COUNT, AUTOMATED 254 10^3/uL (150-450); RED BLOOD COUNT 3.77 10^6/uL (4.00-5.40); WHITE BLOOD COUNT 7.5 10^3/uL (4.0-10.0)
[2023-05-06 14:05] LABS: THYROID STIMULATING HORMONE 5.978 uIU/ML (0.55-4.78); TOTAL 25(OH) VITAMIN D 82.2 NG/ML (20.0-100.0)
[2023-05-06 14:06] LABS: FREE T4 1.12 NG/DL (0.89-1.76)
[2023-05-06 14:11] LABS: ALBUMIN 3.9 G/DL (3.2-5.2); BILIRUBIN,TOTAL 0.4 MG/DL (0.3-1.2); CALCIUM LEVEL 9.8 MG/DL (8.3-10.6); CHOLESTEROL RISK RATIO 2.8 (<5); CREATININE FOR GFR 1.26 MG/DL (0.55-1.30); GLOMERULAR FILTRATION RATE 44.3 (>39); HDL CHOLESTEROL 50.6 MG/DL (>40); LDL CHOLESTEROL 61.8 MG/DL (<100); MAGNESIUM LEVEL 1.9 MG/DL (1.8-2.4); NON-HDL-C 91.4 MG/DL; POTASSIUM SERUM 4.7 MMOL/L (3.5-5.1); TOTAL PROTEIN 7.2 G/DL (5.7-8.2)
[2023-05-06 14:20] LABS: CREATININE, URINE 125.8 MG/DL; MAU/CREAT RATIO 163.7 MCG/MG (0.0-30.0)
[2023-05-06 14:22] LABS: HEMOGLOBIN A1c 6.2 % (4.0-6.0)
== END ==
LOC: M SFHCPLAZ 10:11
PROVIDERS: ATTEND Nurse Practitioner Adult Health
DX: E11.22 Type 2 diabetes mellitus with diabetic chronic kidney disease (principal); I10 Essential (primary) hypertension; E03.9 Hypothyroidism, unspecified; E78.2 Mixed hyperlipidemia; M62.830 Muscle spasm of back; E55.9 Vitamin D deficiency, unspecified

== ENCOUNTER → 2024-02-04 | Outpatient (REF) | payer BC ==
[2024-02-04 18:25] LABS: TOTAL PROTEIN,RANDOM URINE 46.1 MG/DL (0.0-14.0)
[2024-02-04 18:29] LABS: CREATININE,RANDOM URINE 120.7 MG/DL
[2024-02-04 18:41] LABS: BACTERIA, URINE AUTO 2+ (NEGATIVE); MUCUS, URINE SMALL (NEGATIVE); RBC, URINE AUTO 5 /HPF (0-3); SQUAMOUS EPITHELIAL CELL UR AU 0 /HPF (0-6); WBC, URINE AUTO TNTC /HPF (0-3)
== END ==
LOC: M LAB REF 17:09
PROVIDERS: ATTEND Internal Medicine Nephrology
DX: N18.32 Chronic kidney disease, stage 3b (principal); N30.01 Acute cystitis with hematuria

== ENCOUNTER → 2024-02-18 | Outpatient (REF) | payer BC ==
[2024-02-18 13:00] LABS: ALBUMIN 3.8 G/DL (3.2-5.2); BILIRUBIN,TOTAL 0.5 MG/DL (0.3-1.2); CALCIUM LEVEL 9.8 MG/DL (8.3-10.6); CHOLESTEROL RISK RATIO 3.06 (<5); CREATININE FOR GFR 1.34 MG/DL (0.55-1.30); GLOMERULAR FILTRATION RATE 41.2 (>39); HDL CHOLESTEROL 47.7 MG/DL (>40); LDL CHOLESTEROL 76.3 MG/DL (<100); NON-HDL-C 98.3 MG/DL; POTASSIUM SERUM 4.2 MMOL/L (3.5-5.1); THYROID STIMULATING HORMONE 13.399 uIU/ML (0.55-4.78); TOTAL 25(OH) VITAMIN D 65.8 NG/ML (20.0-100.0); TOTAL PROTEIN 7.2 G/DL (5.7-8.2)
[2024-02-18 13:07] LABS: HEMOGLOBIN A1c 6.3 % (4.0-6.0)
== END ==
LOC: M SFHCPLAZ 08:11
PROVIDERS: ATTEND Nurse Practitioner Adult Health
DX: E11.22 Type 2 diabetes mellitus with diabetic chronic kidney disease (principal); E78.2 Mixed hyperlipidemia; E55.9 Vitamin D deficiency, unspecified; E03.9 Hypothyroidism, unspecified

== ENCOUNTER → 2024-04-15 | Outpatient (REF) | payer BC ==
[2024-04-15 13:05] LABS: FREE T4 1.14 NG/DL (0.89-1.76); THYROID STIMULATING HORMONE 11.771 uIU/ML (0.55-4.78)
== END ==
LOC: M SFHCADAM 09:12
PROVIDERS: ATTEND Nurse Practitioner Adult Health
DX: E03.9 Hypothyroidism, unspecified (principal)

== ENCOUNTER → 2024-08-28 | Outpatient (CLI) | payer BC ==
[~2024-08-28] MED LIST changes: +PROHANCE 279.3MG/ML 15ML VIAL As Ordered ONE; +PROHANCE 279.3MG/ML 5ML VIAL As Ordered ONE
== END ==
LOC: M RAD 16:15
PROVIDERS: ATTEND Nurse Practitioner Family
DX: M85.822 Other specified disorders of bone density and structure, left upper arm (principal); M79.622 Pain in left upper arm; R93.6 Abnormal findings on diagnostic imaging of limbs
CPT/HCPCS: 73220; A9576

== ENCOUNTER → 2024-09-01 | Outpatient (CLI) | payer BC ==
[~2024-09-01] MED LIST changes: -PROHANCE 279.3MG/ML 15ML VIAL As Ordered ONE; -PROHANCE 279.3MG/ML 5ML VIAL As Ordered ONE
== END ==
LOC: M RAD 12:12
PROVIDERS: ATTEND Physician Assistant
DX: R91.1 Solitary pulmonary nodule (principal)

== ENCOUNTER → 2024-09-03 | Outpatient (CLI) | payer BC | LOC: M PLAIMG 16:00 | PROVIDERS: ATTEND Nurse Practitioner Adult Health | DX: M89.8X9 Other specified disorders of bone, unspecified site (principal) ==

== ENCOUNTER → 2024-09-17 | Outpatient (CLI) | payer BC | LOC: M PLAIMG 14:49 | PROVIDERS: ATTEND Internal Medicine Pulmonary Disease | DX: R91.8 Other nonspecific abnormal finding of lung field (principal); I70.0 Atherosclerosis of aorta; I25.10 Atherosclerotic heart disease of native coronary artery without angina pectoris; C79.51 Secondary malignant neoplasm of bone ==

== ENCOUNTER 2024-09-23 07:25 | Day surgery (SDC) | payer BC ==
[~2024-09-23] VITALS: Ht 167.6 cm; Wt 82.7 kg
[~2024-09-23 07:25] MED LIST changes: +AMLO1TAB24 PO; +LEVO137T2 PO; +LIDOCAINE 2% 100MG/5ML SDV (FOR ANES.) As Ordered ONE; +LOSA100T5 PO; +ROCURONIUM BROMIDE 50MG/5ML VIAL As Ordered ONE; +propofoL 200 MG/20 ML VIAL As Ordered ONE
[2024-09-23] MEDS ORDERED: GLUCOSE 4 GM CHEW PO PRN (08:20)
[2024-09-23] MEDS ORDERED: DEXTROSE 50% 50ML SYRINGE IV PRN (08:20)
[2024-09-23] MEDS ORDERED: GLUCAGON INJ 1MG VIAL SC PRN (08:20)
[2024-09-23] MEDS: LIDOCAINE PRES-FREE 2% 10ML AMP INH ONE (08:34)
[2024-09-23] MEDS: ALBUTEROL SULFATE 2.5MG/0.5ML INH CONCENTRATE NEB SOLN INH ONE (08:34)
[2024-09-23] MEDS: LR 1,000 ML IV SCH (08:35)
[2024-09-23] MEDS: INSULIN LISPRO (NovoLOG) PER UNIT SC PRN (08:35)
[2024-09-23] MEDS ORDERED: fentaNYL 100 MCG/2 ML INJECTION As Ordered ONE (08:59)
[2024-09-23] MEDS: CETACAINE SPRAY 5GM As Ordered ONE (09:39)
[2024-09-23] MEDS ORDERED: SUGAMMADEX SODIUM 500 MG/5 ML VIAL (BRIDION) As Ordered ONE (10:19)
[2024-09-23] MEDS: EPINEPHrine 1MG/10ML SYRINGE 1.5IN As Ordered ONE (10:21)
[2024-09-23] MEDS ORDERED: fentaNYL 100 MCG/2 ML INJECTION IV PRN (10:25)
[2024-09-23] MEDS ORDERED: LR 1,000 ML IV SCH (10:25)
[2024-09-23] MEDS ORDERED: ONDANSETRON 4MG 2ML VIAL IV PRN (10:25)
[2024-09-23 11:33] VITALS: BP 148/79; TEMP 97.5; O2SAT 96
[2024-10-12] MEDS ORDERED: PANT40TA29 PO (10:47)
[2024-10-12] MEDS ORDERED: PERCOCET PO (10:47)
[2024-10-12] MEDS ORDERED: ONDA-282 SL (10:47)
[2024-10-12] MEDS ORDERED: MEMA10TA PO (11:04)
[2024-10-28] MEDS ORDERED: TRAD5TAB PO (13:08)
[2024-10-28] MEDS ORDERED: THERTAB52 PO (13:08)
[2024-11-06] MEDS ORDERED: ONDA-282 SL (10:11)
[2024-11-13] MEDS ORDERED: DEXA4TA PO (10:17)
[2024-11-19] MEDS ORDERED: GILO1TAB2 PO (10:36)
[2024-11-19] MEDS ORDERED: DULO30CA9 PO (11:26)
[2024-11-19] MEDS ORDERED: OXYC10TA12 PO (11:26)
[2024-11-23] MEDS ORDERED: GILO1TAB2 PO (10:58)
[2024-11-25] MEDS ORDERED: HYDR-3713 PO (11:43)
== END 2024-09-23 11:47 | disposition home or self-care (01) ==
LOC: M SDC 07:25
PROVIDERS: ATTEND Internal Medicine Pulmonary Disease
DX: C34.12 Malignant neoplasm of upper lobe, left bronchus or lung (principal); J43.9 Emphysema, unspecified; E11.9 Type 2 diabetes mellitus without complications; R06.83 Snoring; Z88.5 Allergy status to narcotic agent; Z79.899 Other long term (current) drug therapy
CPT/HCPCS: 31624; 31626; 31627; 31628; 31629; 31654; 71045; 76000; 88108; 88173; 88305; 88313; 93005; A4648; C1601; J0171; J1815; J3010

== ENCOUNTER 2024-09-28 13:35 | Inpatient (IN) | payer BC, MEDICARE ==
[~2024-09-28] VITALS: Ht 170.2 cm; Wt 83.2 kg
[~2024-09-28 13:35] MED LIST changes: -LIDOCAINE 2% 100MG/5ML SDV (FOR ANES.) As Ordered ONE; -ROCURONIUM BROMIDE 50MG/5ML VIAL As Ordered ONE; -propofoL 200 MG/20 ML VIAL As Ordered ONE
[2024-09-28 14:36] LABS: BASO # 0.1 10^3/uL (0.0-0.2); BASO % 0.5 % (0.0-1.0); EOS # 0.1 10^3/uL (0.0-0.5); EOS % 0.6 % (0.0-3.0); HEMATOCRIT 32.9 % (36.0-47.0); HEMOGLOBIN 11.2 g/dl (12.0-15.5); LYMPH # 1.7 10^3/uL (1.5-5.0); LYMPH % 12.3 % (24.0-44.0); MEAN CORPUSCULAR HEMOGLOBIN 33.2 pg (27.0-33.0); MEAN CORPUSCULAR VOLUME 97.6 fl (80.0-96.0); MONO % 7.3 % (2.0-8.0); NEUTROPHILS # 10.6 10^3/uL (1.5-8.5); NEUTROPHILS % 78.8 % (36.0-66.0); PLATELET COUNT, AUTOMATED 255 10^3/uL (150-450); RED BLOOD COUNT 3.37 10^6/uL (4.00-5.40); WHITE BLOOD COUNT 13.4 10^3/uL (4.0-10.0)
[2024-09-28 15:10] LABS: ALBUMIN 3.4 G/DL (3.2-5.2); BILIRUBIN,DIRECT 0.2 MG/DL (<0.4); BILIRUBIN,TOTAL 0.6 MG/DL (0.3-1.2); CALCIUM LEVEL 14.7 MG/DL (8.3-10.6); CREATININE FOR GFR 1.77 MG/DL (0.55-1.30); GLOMERULAR FILTRATION RATE 29.8 (>39); POTASSIUM SERUM 4.2 MMOL/L (3.5-5.1); TOTAL PROTEIN 7.6 G/DL (5.7-8.2)
[2024-09-28 16:36] LABS: KETONE, URINE AUTO RFX NEGATIVE (NEGATIVE); MUCUS, URINE RFX SMALL (NEGATIVE); NITRITE, URINE AUTO RFX NEGATIVE (NEGATIVE); RBC, URINE AUTO RFX 2 /HPF (0-3); SQUAM EPITHELIAL CELL UR AURFX 2 /HPF (0-6)
[2024-09-28 16:39] LABS: LEUKOCYTE ESTERASE UR AUTO RFX 3+ (NEGATIVE); WBC, URINE AUTO RFX 45 /HPF (0-3)
[2024-09-28] MEDS: NS (Normal Saline) 0.9% 1,000 ML IV ONE (17:14)
[2024-09-28] MEDS ORDERED: ZOLEDRONIC ACID 4 MG in IV 1 EA IV ONE (17:30)
[2024-09-28] MEDS ORDERED: MAALOX 30 ML SUSP *UDC PO PRN (17:45)
[2024-09-28] MEDS ORDERED: GLUCAGON INJ 1MG VIAL SC PRN (17:55)
[2024-09-28] MEDS ORDERED: GLUCOSE 4 GM CHEW PO PRN (17:55)
[2024-09-28] MEDS ORDERED: DEXTROSE 50% 50ML SYRINGE IV PRN (17:55)
[2024-09-28] MEDS: ONDANSETRON 4MG 2ML VIAL IV ONE (17:56)
[2024-09-28] MEDS: CALCITONIN SALMON (MIACALCIN) 400INTERNATIONAL UNITS/2ML VIAL SQ SCH (17:56)
[2024-09-28] MEDS: NS (Normal Saline) 0.9% 1,000 ML IV SCH (17:57)
[2024-09-28] MEDS ORDERED: HOME MED LIST COMPLETE! XX SCH (18:35)
[2024-09-28 20:18] LABS: THYROID STIMULATING HORMONE 0.112 uIU/ML (0.55-4.78); TOTAL 25(OH) VITAMIN D 74.4 NG/ML (20.0-100.0)
[2024-09-28] MEDS: INSULIN LISPRO (NovoLOG) PER UNIT SC SCH (20:18)
[2024-09-28] MEDS: cefTRIAXone SOD 2 GM in DEXTROSE 5% (D5W) ADV/MINI-BAG 50 ML IV SCH (20:21)
[2024-09-28] MEDS: PRAVASTATIN 20 MG TAB PO SCH (20:21)
[2024-09-28] MEDS: LEVEMIR (INSULIN DETEMIR) 1 UNITS/0.01ML SC SCH (20:22)
[2024-09-28] MEDS: PERCOCET 5MG/325MG TAB PO PRN (20:22)
[2024-09-28 21:40] LABS: PTH INTACT 11.9 PG/ML (18.5-88.0)
[2024-09-29] MEDS: LEVOTHYROXINE 137MCG TABLET (0.137MG) PO SCH (06:37)
[2024-09-29 07:37] LABS: BASO # 0.1 10^3/uL (0.0-0.2); BASO % 0.6 % (0.0-1.0); EOS # 0.2 10^3/uL (0.0-0.5); EOS % 2.2 % (0.0-3.0); HEMATOCRIT 31.2 % (36.0-47.0); HEMOGLOBIN 10.5 g/dl (12.0-15.5); LYMPH # 1.8 10^3/uL (1.5-5.0); LYMPH % 16.5 % (24.0-44.0); MEAN CORPUSCULAR HEMOGLOBIN 32.9 pg (27.0-33.0); MEAN CORPUSCULAR HGB CONC 33.7 g/dl (32.0-36.5); MEAN CORPUSCULAR VOLUME 97.8 fl (80.0-96.0); MONO # 0.9 10^3/uL (0.0-0.8); MONO % 8.4 % (2.0-8.0); NEUTROPHILS # 7.8 10^3/uL (1.5-8.5); NEUTROPHILS % 71.8 % (36.0-66.0); PLATELET COUNT, AUTOMATED 230 10^3/uL (150-450); RED BLOOD COUNT 3.19 10^6/uL (4.00-5.40); WHITE BLOOD COUNT 10.9 10^3/uL (4.0-10.0)
[2024-09-29 08:01] LABS: FREE T4 1.28 NG/DL (0.89-1.76)
[2024-09-29 08:06] LABS: CREATININE FOR GFR 1.38 MG/DL (0.55-1.30); GLOMERULAR FILTRATION RATE 39.7 (>39); MAGNESIUM LEVEL 1.6 MG/DL (1.8-2.4); POTASSIUM SERUM 3.9 MMOL/L (3.5-5.1)
[2024-09-29] MEDS: ENOXAPARIN 40MG/0.4ML SYRINGE (J1650 PER 10MG) SC SCH (08:10)
[2024-09-29] MEDS: INSULIN LISPRO (NovoLOG) PER UNIT SC SCH (08:10)
[2024-09-29] MEDS: PANTOPRAZOLE 40MG TAB (PROTONIX) PO SCH (08:11)
[2024-09-29] MEDS: CALCITONIN SALMON (MIACALCIN) 400INTERNATIONAL UNITS/2ML VIAL SQ SCH (09:10)
[2024-09-29] MEDS: MAG SULF 1GM/100ML (MAG RUN) 1 GM in IV 1 EA IV SCH (10:19)
[2024-09-29] MEDS: ONDANSETRON 4MG ORAL DISINTEGRATING TAB PO PRN (11:20)
[2024-09-29 15:00] VITALS: BP 134/75; TEMP 97.3; O2SAT 93
[2024-09-29] MEDS ORDERED: PROHANCE 279.3MG/ML 15ML VIAL As Ordered ONE (18:36)
[2024-09-29 20:00] VITALS: BP 122/59; TEMP 98; O2SAT 93
[2024-09-30 04:00] VITALS: BP 141/71; TEMP 97.7; O2SAT 98
[2024-09-30 07:27] LABS: ALBUMIN 2.6 G/DL (3.2-5.2); BILIRUBIN,TOTAL 0.3 MG/DL (0.3-1.2); CALCIUM LEVEL 11.2 MG/DL (8.3-10.6); CREATININE FOR GFR 1.14 MG/DL (0.55-1.30); GLOMERULAR FILTRATION RATE 49.5 (>39); POTASSIUM SERUM 3.9 MMOL/L (3.5-5.1); TOTAL PROTEIN 6.6 G/DL (5.7-8.2)
[2024-09-30] MEDS ORDERED: ZOLEDRONIC ACID 4 MG in IV 1 EA IV ONE (11:00)
[2024-09-30] MEDS: ZOLEDRONIC ACID 4 MG in IV 1 EA IV ONE (12:12)
[2024-09-30 12:22] VITALS: BP 134/77; TEMP 98; O2SAT 94
[2024-09-30] MEDS: CEFDINIR 300 MG CAP (OMNICEF) PO SCH (12:58)
[2024-09-30 14:38] VITALS: BP 135/69; TEMP 97.3; O2SAT 92
[2024-09-30] MEDS: MORPHINE 2 MG/ML 1ML VIAL IV PRN (14:50)
[2024-09-30 20:02] VITALS: BP 136/68; TEMP 97.2; O2SAT 92
[2024-10-01] VITALS (8 sets, daily range): BP systolic 140–150; BP diastolic 69–77; TEMP 97.7–101.6; O2SAT 91–93
[2024-10-01 06:57] LABS: ALBUMIN 2.4 G/DL (3.2-5.2); BILIRUBIN,TOTAL 0.4 MG/DL (0.3-1.2); CALCIUM LEVEL 10.6 MG/DL (8.3-10.6); CREATININE FOR GFR 1.01 MG/DL (0.55-1.30); GLOMERULAR FILTRATION RATE 56.9 (>39); TOTAL PROTEIN 6.2 G/DL (5.7-8.2)
[2024-10-01] MEDS: METOCLOPRAMIDE INJ 10MG/2ML VIAL IV PRN (07:45)
[2024-10-01] MEDS: LIDOCAINE 5% (LIDODERM) PATCH TD SCH (10:15)
[2024-10-01] MEDS: ENOXAPARIN 40MG/0.4ML SYRINGE (J1650 PER 10MG) SC SCH (10:47)
[2024-10-01] MEDS: ACETAMINOPHEN 325 MG TAB PO PRN (12:12)
[2024-10-02] VITALS (8 sets, daily range): BP systolic 117–146; BP diastolic 62–81; TEMP 97.2–98.9; O2SAT 90–98
[2024-10-02] MEDS: PERCOCET 5MG/325MG TAB PO PRN (03:45)
[2024-10-02 05:36] LABS: BASO % 0.4 % (0.0-1.0); EOS # 0.2 10^3/uL (0.0-0.5); HEMATOCRIT 27.2 % (36.0-47.0); HEMOGLOBIN 9.2 g/dl (12.0-15.5); LYMPH # 0.6 10^3/uL (1.5-5.0); MEAN CORPUSCULAR HEMOGLOBIN 32.9 pg (27.0-33.0); MEAN CORPUSCULAR HGB CONC 33.8 g/dl (32.0-36.5); MEAN CORPUSCULAR VOLUME 97.1 fl (80.0-96.0); MONO # 0.6 10^3/uL (0.0-0.8); MONO % 7.3 % (2.0-8.0); NEUTROPHILS # 6.5 10^3/uL (1.5-8.5); NEUTROPHILS % 82.7 % (36.0-66.0); PLATELET COUNT, AUTOMATED 197 10^3/uL (150-450); WHITE BLOOD COUNT 7.8 10^3/uL (4.0-10.0)
[2024-10-02 06:05] LABS: ALBUMIN 2.2 G/DL (3.2-5.2); BILIRUBIN,TOTAL 0.3 MG/DL (0.3-1.2); CALCIUM LEVEL 9.4 MG/DL (8.3-10.6); CREATININE FOR GFR 1.15 MG/DL (0.55-1.30); POTASSIUM SERUM 3.8 MMOL/L (3.5-5.1); TOTAL PROTEIN 5.7 G/DL (5.7-8.2)
[2024-10-02 16:13] LABS: APPEARANCE, CSF CLEAR (CLEAR); COLOR, CSF COLORLESS (COLORLESS); CSF TUBE# CELL CNT TUBE 1
[2024-10-02 16:32] LABS: CSF TUBE# TP TUBE 2; TOTAL PROTEIN,CSF 195.2 MG/DL (15-45)
[2024-10-02 16:34] LABS: CSF TUBE# GLU TUBE 2
[2024-10-03 04:00] VITALS: BP 136/85; TEMP 98.3
[2024-10-03 06:10] LABS: BILIRUBIN,TOTAL 0.2 MG/DL (0.3-1.2); CREATININE FOR GFR 0.99 MG/DL (0.55-1.30); GLOMERULAR FILTRATION RATE 58.2 (>39); POTASSIUM SERUM 3.7 MMOL/L (3.5-5.1); TOTAL PROTEIN 5.3 G/DL (5.7-8.2)
[2024-10-03 07:43] LABS: BASO % 0.4 % (0.0-1.0); EOS # 0.4 10^3/uL (0.0-0.5); EOS % 5.7 % (0.0-3.0); HEMATOCRIT 26.3 % (36.0-47.0); HEMOGLOBIN 8.8 g/dl (12.0-15.5); LYMPH # 1.1 10^3/uL (1.5-5.0); LYMPH % 15.7 % (24.0-44.0); MEAN CORPUSCULAR HEMOGLOBIN 32.8 pg (27.0-33.0); MEAN CORPUSCULAR HGB CONC 33.5 g/dl (32.0-36.5); MEAN CORPUSCULAR VOLUME 98.1 fl (80.0-96.0); MONO # 0.6 10^3/uL (0.0-0.8); MONO % 9.2 % (2.0-8.0); NEUTROPHILS # 4.8 10^3/uL (1.5-8.5); NEUTROPHILS % 68.4 % (36.0-66.0); PLATELET COUNT, AUTOMATED 196 10^3/uL (150-450); RED BLOOD COUNT 2.68 10^6/uL (4.00-5.40)
[2024-10-03 07:49] LABS: MAGNESIUM LEVEL 1.4 MG/DL (1.8-2.4)
[2024-10-03 08:12] VITALS: BP 136/71
[2024-10-03] MEDS: SENOKOT S TAB PO SCH (11:36)
[2024-10-03] MEDS: MAG SULF 1GM/100ML (MAG RUN) 1 GM in IV 1 EA IV SCH (11:37)
[2024-10-03 12:00] VITALS: BP 128/66; TEMP 97.9; O2SAT 93
[2024-10-03] MEDS: MOM 30ML SUSPENSION UDC PO PRN (14:59)
[2024-10-03 19:38] VITALS: BP 127/65; TEMP 99.6; O2SAT 93
[2024-10-04 01:28] VITALS: TEMP 98
[2024-10-04 03:24] VITALS: BP 127/63; TEMP 98; O2SAT 92
[2024-10-04 06:17] LABS: BASO % 0.5 % (0.0-1.0); EOS # 0.4 10^3/uL (0.0-0.5); HEMATOCRIT 25.8 % (36.0-47.0); HEMOGLOBIN 8.6 g/dl (12.0-15.5); LYMPH # 1.3 10^3/uL (1.5-5.0); LYMPH % 20.1 % (24.0-44.0); MEAN CORPUSCULAR HEMOGLOBIN 32.2 pg (27.0-33.0); MEAN CORPUSCULAR HGB CONC 33.3 g/dl (32.0-36.5); MEAN CORPUSCULAR VOLUME 96.6 fl (80.0-96.0); MONO # 0.5 10^3/uL (0.0-0.8); MONO % 8.4 % (2.0-8.0); NEUTROPHILS # 4.1 10^3/uL (1.5-8.5); NEUTROPHILS % 64.5 % (36.0-66.0); PLATELET COUNT, AUTOMATED 210 10^3/uL (150-450); RED BLOOD COUNT 2.67 10^6/uL (4.00-5.40); WHITE BLOOD COUNT 6.3 10^3/uL (4.0-10.0)
[2024-10-04 06:41] LABS: ALBUMIN 1.9 G/DL (3.2-5.2); BILIRUBIN,TOTAL 0.2 MG/DL (0.3-1.2); CALCIUM LEVEL 7.3 MG/DL (8.3-10.6); CREATININE FOR GFR 1.04 MG/DL (0.55-1.30); MAGNESIUM LEVEL 2.2 MG/DL (1.8-2.4); POTASSIUM SERUM 3.9 MMOL/L (3.5-5.1); TOTAL PROTEIN 5.2 G/DL (5.7-8.2)
[2024-10-04] MEDS: FLEET ENEMA PR PRN (14:58)
[2024-10-05 05:40] VITALS: BP 140/65; TEMP 97.5; O2SAT 94
[2024-10-05 05:47] LABS: BASO % 0.6 % (0.0-1.0); EOS # 0.5 10^3/uL (0.0-0.5); EOS % 6.6 % (0.0-3.0); HEMATOCRIT 26.1 % (36.0-47.0); LYMPH # 1.5 10^3/uL (1.5-5.0); LYMPH % 21.5 % (24.0-44.0); MEAN CORPUSCULAR HEMOGLOBIN 33.2 pg (27.0-33.0); MEAN CORPUSCULAR HGB CONC 34.5 g/dl (32.0-36.5); MEAN CORPUSCULAR VOLUME 96.3 fl (80.0-96.0); MONO # 0.6 10^3/uL (0.0-0.8); MONO % 8.1 % (2.0-8.0); NEUTROPHILS # 4.4 10^3/uL (1.5-8.5); NEUTROPHILS % 62.6 % (36.0-66.0); PLATELET COUNT, AUTOMATED 241 10^3/uL (150-450); RED BLOOD COUNT 2.71 10^6/uL (4.00-5.40); WHITE BLOOD COUNT 6.9 10^3/uL (4.0-10.0)
[2024-10-05 06:24] LABS: BILIRUBIN,TOTAL 0.2 MG/DL (0.3-1.2); CALCIUM LEVEL 7.9 MG/DL (8.3-10.6); CREATININE FOR GFR 1.18 MG/DL (0.55-1.30); GLOMERULAR FILTRATION RATE 47.5 (>39); MAGNESIUM LEVEL 2.2 MG/DL (1.8-2.4); POTASSIUM SERUM 4.2 MMOL/L (3.5-5.1); TOTAL PROTEIN 5.5 G/DL (5.7-8.2)
[2024-10-05] MEDS: ONDANSETRON 4MG ORAL DISINTEGRATING TAB SL PRN (15:56)
[2024-10-06 04:03] VITALS: BP 120/58; TEMP 98.2; O2SAT 94
[2024-10-06 06:27] LABS: BASO % 0.4 % (0.0-1.0); EOS # 0.4 10^3/uL (0.0-0.5); EOS % 5.6 % (0.0-3.0); HEMATOCRIT 26.5 % (36.0-47.0); HEMOGLOBIN 8.9 g/dl (12.0-15.5); LYMPH # 1.1 10^3/uL (1.5-5.0); LYMPH % 16.3 % (24.0-44.0); MEAN CORPUSCULAR HEMOGLOBIN 32.5 pg (27.0-33.0); MEAN CORPUSCULAR HGB CONC 33.6 g/dl (32.0-36.5); MEAN CORPUSCULAR VOLUME 96.7 fl (80.0-96.0); MONO # 0.5 10^3/uL (0.0-0.8); MONO % 6.8 % (2.0-8.0); NEUTROPHILS # 4.9 10^3/uL (1.5-8.5); PLATELET COUNT, AUTOMATED 273 10^3/uL (150-450); RED BLOOD COUNT 2.74 10^6/uL (4.00-5.40)
[2024-10-06 06:58] LABS: ALBUMIN 2.1 G/DL (3.2-5.2); BILIRUBIN,TOTAL 0.3 MG/DL (0.3-1.2); CALCIUM LEVEL 8.1 MG/DL (8.3-10.6); CREATININE FOR GFR 1.14 MG/DL (0.55-1.30); GLOMERULAR FILTRATION RATE 49.5 (>39); POTASSIUM SERUM 4.2 MMOL/L (3.5-5.1); TOTAL PROTEIN 5.4 G/DL (5.7-8.2)
[2024-10-07 04:03] VITALS: BP 125/63; TEMP 97.5; O2SAT 93
[2024-10-07 05:51] LABS: BASO % 0.4 % (0.0-1.0); EOS # 0.4 10^3/uL (0.0-0.5); EOS % 5.6 % (0.0-3.0); HEMATOCRIT 26.5 % (36.0-47.0); HEMOGLOBIN 9.4 g/dl (12.0-15.5); LYMPH # 0.8 10^3/uL (1.5-5.0); LYMPH % 11.5 % (24.0-44.0); MEAN CORPUSCULAR HEMOGLOBIN 34.2 pg (27.0-33.0); MEAN CORPUSCULAR HGB CONC 35.5 g/dl (32.0-36.5); MEAN CORPUSCULAR VOLUME 96.4 fl (80.0-96.0); MONO # 0.5 10^3/uL (0.0-0.8); MONO % 7.1 % (2.0-8.0); NEUTROPHILS # 5.1 10^3/uL (1.5-8.5); NEUTROPHILS % 74.1 % (36.0-66.0); PLATELET COUNT, AUTOMATED 288 10^3/uL (150-450); RED BLOOD COUNT 2.75 10^6/uL (4.00-5.40); WHITE BLOOD COUNT 6.9 10^3/uL (4.0-10.0)
[2024-10-07 06:27] LABS: ALBUMIN 2.1 G/DL (3.2-5.2); BILIRUBIN,TOTAL 0.3 MG/DL (0.3-1.2); CREATININE FOR GFR 1.15 MG/DL (0.55-1.30); MAGNESIUM LEVEL 2.1 MG/DL (1.8-2.4); POTASSIUM SERUM 4.1 MMOL/L (3.5-5.1); TOTAL PROTEIN 5.5 G/DL (5.7-8.2)
[2024-10-08 04:00] VITALS: BP 120/58; TEMP 97.5; O2SAT 96
[2024-10-08 18:56] VITALS: O2SAT 96
[2024-10-09 08:22] VITALS: BP 118/56
[2024-10-09] MEDS ORDERED: PANT40TA29 PO (11:30)
[2024-10-09] MEDS ORDERED: PERCOCET PO (11:30)
[2024-10-09] MEDS ORDERED: ONDA-282 SL (11:57)
[2024-10-12] MEDS ORDERED: PANT40TA29 PO (10:47)
[2024-10-12] MEDS ORDERED: ONDA-282 SL (10:47)
[2024-10-12] MEDS ORDERED: PERCOCET PO (10:47)
[2024-10-12] MEDS ORDERED: MEMA10TA PO (11:04)
== END 2024-10-09 13:15 | disposition home health service (06) | DRG 41 ==
LOC: M ED 13:35 → M ED INP 17:45 → M MS4PR 09-29 14:49 → M MSPAV 09-30 14:38
PROVIDERS: ADMIT Student in an Organized Health Care Education/Training Program; ATTEND Student in an Organized Health Care Education/Training Program
PROC: 009U3ZX Drainage of Spinal Canal, Percutaneous Approach, Diagnostic (ICD-10-PCS; principal; 2024-10-02 11:00)
DX: C79.49 Secondary malignant neoplasm of other parts of nervous system (principal); N17.9 Acute kidney failure, unspecified; C79.51 Secondary malignant neoplasm of bone; E11.22 Type 2 diabetes mellitus with diabetic chronic kidney disease; E83.52 Hypercalcemia; E83.42 Hypomagnesemia; C34.92 Malignant neoplasm of unspecified part of left bronchus or lung; N18.30 Chronic kidney disease, stage 3 unspecified; N39.0 Urinary tract infection, site not specified; I12.9 Hypertensive chronic kidney disease with stage 1 through stage 4 chronic kidney disease, or unspecified chronic kidney disease; K21.9 Gastro-esophageal reflux disease without esophagitis; M19.90 Unspecified osteoarthritis, unspecified site; F17.200 Nicotine dependence, unspecified, uncomplicated; E03.9 Hypothyroidism, unspecified; B96.20 Unspecified Escherichia coli [E. coli] as the cause of diseases classified elsewhere; G43.909 Migraine, unspecified, not intractable, without status migrainosus; Z90.49 Acquired absence of other specified parts of digestive tract; Z90.79 Acquired absence of other genital organ(s); Z79.890 Hormone replacement therapy; Z79.4 Long term (current) use of insulin; Z79.899 Other long term (current) drug therapy; Z88.5 Allergy status to narcotic agent

== ENCOUNTER 2024-10-16 09:38 | Outpatient (RCR) | payer BC ==
[~2024-10-16 09:38] MED LIST changes: +MEMA10TA PO; +ONDA-282 SL; +PANT40TA29 PO; +PERCOCET PO
[2024-10-20] MEDS ORDERED: DEXA4TA PO (12:27)
== END 2024-10-23 ==
LOC: M ONCR 09:38
PROVIDERS: ATTEND General Practice
DX: Z51.0 Encounter for antineoplastic radiation therapy (principal); C79.51 Secondary malignant neoplasm of bone

== ENCOUNTER → 2024-11-16 | Outpatient (CLI) | payer BC ==
[~2024-11-16] MED LIST changes: +DEXA4TA PO; +THERTAB52 PO; +TRAD5TAB
== END ==
LOC: M PLARAD 10:14
PROVIDERS: ATTEND Nurse Practitioner Adult Health
DX: R93.89 Abnormal findings on diagnostic imaging of other specified body structures (principal); M89.8X9 Other specified disorders of bone, unspecified site; R91.8 Other nonspecific abnormal finding of lung field
CPT/HCPCS: 78815; A9552

== ENCOUNTER → 2024-11-19 | Outpatient (CLI) | payer BC ==
[~2024-11-19] VITALS: Ht 170.2 cm; Wt 69.0 kg
[~2024-11-19] MED LIST changes: +DULO30CA9 PO; +GILO1TAB2 PO; +OXYC10TA12 PO
[2024-11-19 11:02] VITALS: BP 103/67; O2SAT 97
== END ==
LOC: M PAL 10:40
PROVIDERS: ATTEND Physician Assistant
DX: Z51.5 Encounter for palliative care (principal); C34.90 Malignant neoplasm of unspecified part of unspecified bronchus or lung; C79.31 Secondary malignant neoplasm of brain; Z79.891 Long term (current) use of opiate analgesic; R11.0 Nausea; Z88.5 Allergy status to narcotic agent

== ENCOUNTER 2024-11-25 11:58 | Inpatient (IN) | payer BC ==
[~2024-11-25] VITALS: Ht 170.2 cm; Wt 69.5 kg
[~2024-11-25 11:58] MED LIST changes: -ONDA-282 PO; -OXYC1TAB23 PO
[2024-11-25] MEDS: NS 500 ML IV ONE (13:30)
[2024-11-25] MEDS: MORPHINE 4 MG/ML 1ML VIAL IV PRN (13:30)
[2024-11-25] MEDS: METOCLOPRAMIDE INJ 10MG/2ML VIAL IV ONE (13:30)
[2024-11-25 13:34] LABS: BASO # 0.1 10^3/uL (0.0-0.2); BASO % 0.5 % (0.0-1.0); EOS # 0.1 10^3/uL (0.0-0.5); HEMOGLOBIN 10.7 g/dl (12.0-15.5); LYMPH # 0.2 10^3/uL (1.5-5.0); LYMPH % 2.1 % (24.0-44.0); MEAN CORPUSCULAR HEMOGLOBIN 32.7 pg (27.0-33.0); MEAN CORPUSCULAR HGB CONC 33.4 g/dl (32.0-36.5); MEAN CORPUSCULAR VOLUME 97.9 fl (80.0-96.0); MONO # 0.6 10^3/uL (0.0-0.8); MONO % 6.2 % (2.0-8.0); NEUTROPHILS # 9.2 10^3/uL (1.5-8.5); NEUTROPHILS % 89.4 % (36.0-66.0); PLATELET COUNT, AUTOMATED 210 10^3/uL (150-450); RED BLOOD COUNT 3.27 10^6/uL (4.00-5.40); WHITE BLOOD COUNT 10.3 10^3/uL (4.0-10.0)
[2024-11-25 13:59] LABS: ALBUMIN 2.8 G/DL (3.2-5.2); BILIRUBIN,DIRECT 0.2 MG/DL (<0.4); BILIRUBIN,TOTAL 0.5 MG/DL (0.3-1.2); CALCIUM LEVEL 9.2 MG/DL (8.3-10.6); CREATININE FOR GFR 3.55 MG/DL (0.55-1.30); GLOMERULAR FILTRATION RATE 13.3 (>39); POTASSIUM SERUM 3.5 MMOL/L (3.5-5.1); TOTAL PROTEIN 7.4 G/DL (5.7-8.2)
[2024-11-25 14:01] LABS: PREALBUMIN 12.1 MG/DL (10.0-40.0)
[2024-11-25] MEDS ORDERED: DULO30CA9 PO (14:19)
[2024-11-25] MEDS ORDERED: ONDA-282 PO (14:19)
[2024-11-25] MEDS: NS (Normal Saline) 0.9% 1,000 ML IV SCH ×2 (14:20→15:57)
[2024-11-25] MEDS ORDERED: OXYC1TAB23 PO (14:20)
[2024-11-25] MEDS ORDERED: HOME MED LIST COMPLETE! XX SCH (14:30)
[2024-11-25] MEDS ORDERED: DEXTROSE 50% 50ML SYRINGE IV PRN (15:25)
[2024-11-25] MEDS ORDERED: GLUCOSE 4 GM CHEW PO PRN (15:25)
[2024-11-25] MEDS ORDERED: GLUCAGON INJ 1MG VIAL SC PRN (15:25)
[2024-11-25] MEDS ORDERED: ACETAMINOPHEN 325 MG TAB PO PRN (15:25)
[2024-11-25] MEDS ORDERED: MOM 30ML SUSPENSION UDC PO PRN (16:30)
[2024-11-25 16:40] VITALS: BP 108/66; TEMP 97.2; O2SAT 99
[2024-11-25 17:13] LABS: INR 1.24; PARTIAL THROMBOPLASTIN TIME 32.2 SECONDS (24.8-34.2); PROTHROMBIN TIME 15.9 SECONDS (12.5-14.5)
[2024-11-25] MEDS: INSULIN LISPRO (NovoLOG) PER UNIT SC SCH (18:00)
[2024-11-25] MEDS: HEPARIN SOD (PORCINE) 5000UNITS/ML 1ML VIAL/SYRINGE SC SCH (20:11)
[2024-11-25] MEDS: DOCUSATE SODIUM 100MG CAPSULE PO SCH (20:11)
[2024-11-25] MEDS: DULoxetine 30MG CAPSULE (CYMBALTA) PO SCH (20:11)
[2024-11-25] MEDS: PRAVASTATIN 20 MG TAB PO SCH (20:11)
[2024-11-25] MEDS: SENNA 8.6 MG TAB (SENOKOT) PO SCH (20:11)
[2024-11-26 03:57] VITALS: BP 109/62; TEMP 97.3; O2SAT 95
[2024-11-26 04:52] LABS: KETONE, URINE AUTO RFX NEGATIVE (NEGATIVE); MUCUS, URINE RFX SMALL (NEGATIVE); NITRITE, URINE AUTO RFX NEGATIVE (NEGATIVE); RBC, URINE AUTO RFX 3 /HPF (0-3); SQUAM EPITHELIAL CELL UR AURFX 1 /HPF (0-6)
[2024-11-26 04:55] LABS: LEUKOCYTE ESTERASE UR AUTO RFX 2+ (NEGATIVE); WBC, URINE AUTO RFX 22 /HPF (0-3)
[2024-11-26 06:22] LABS: HEMATOCRIT 28.2 % (36.0-47.0); HEMOGLOBIN 9.1 g/dl (12.0-15.5); MEAN CORPUSCULAR HEMOGLOBIN 31.8 pg (27.0-33.0); MEAN CORPUSCULAR HGB CONC 32.3 g/dl (32.0-36.5); MEAN CORPUSCULAR VOLUME 98.6 fl (80.0-96.0); PLATELET COUNT, AUTOMATED 173 10^3/uL (150-450); RED BLOOD COUNT 2.86 10^6/uL (4.00-5.40); WHITE BLOOD COUNT 6.9 10^3/uL (4.0-10.0)
[2024-11-26 06:44] LABS: ALBUMIN 2.3 G/DL (3.2-5.2); BILIRUBIN,TOTAL 0.4 MG/DL (0.3-1.2); CALCIUM LEVEL 8.3 MG/DL (8.3-10.6); CREATININE FOR GFR 2.51 MG/DL (0.55-1.30); GLOMERULAR FILTRATION RATE 19.9 (>39); POTASSIUM SERUM 3.2 MMOL/L (3.5-5.1); TOTAL PROTEIN 6.3 G/DL (5.7-8.2)
[2024-11-26] MEDS: LEVOTHYROXINE 137MCG TABLET (0.137MG) PO SCH (06:49)
[2024-11-26] MEDS: BISACODYL 10MG SUPP PR SCH ×2 (08:19→19:44)
[2024-11-26] MEDS: PANTOPRAZOLE 40MG VIAL IV SCH (08:19)
[2024-11-26] MEDS: POTASSIUM CHLORIDE 10MEQ SR TABLET PO SCH (08:19)
[2024-11-26] MEDS: cefTRIAXone SOD 1 GM in DEXTROSE 5% (D5W) ADV/MINI-BAG 50 ML IV SCH (08:19)
[2024-11-26] MEDS: ONDANSETRON 4MG 2ML VIAL IV PRN (10:09)
[2024-11-26 12:00] VITALS: BP 100/57; TEMP 97.3; O2SAT 95
[2024-11-26] MEDS: PERCOCET 5MG/325MG TAB PO PRN (13:37)
[2024-11-26] MEDS: PROMETHAZINE 25MG/ML 1ML VIAL IV PRN (13:55)
[2024-11-26 20:06] VITALS: BP 117/59; TEMP 97.5; O2SAT 96
[2024-11-27 04:05] VITALS: BP 108/55; TEMP 97.5; O2SAT 94
[2024-11-27 06:09] LABS: HEMATOCRIT 26.1 % (36.0-47.0); HEMOGLOBIN 8.6 g/dl (12.0-15.5); MEAN CORPUSCULAR HEMOGLOBIN 32.2 pg (27.0-33.0); MEAN CORPUSCULAR VOLUME 97.8 fl (80.0-96.0); PLATELET COUNT, AUTOMATED 171 10^3/uL (150-450); RED BLOOD COUNT 2.67 10^6/uL (4.00-5.40); WHITE BLOOD COUNT 5.9 10^3/uL (4.0-10.0)
[2024-11-27 06:43] LABS: BILIRUBIN,TOTAL 0.3 MG/DL (0.3-1.2); CALCIUM LEVEL 8.4 MG/DL (8.3-10.6); CREATININE FOR GFR 1.65 MG/DL (0.55-1.30); GLOMERULAR FILTRATION RATE 32.2 (>39); POTASSIUM SERUM 3.5 MMOL/L (3.5-5.1); TOTAL PROTEIN 5.8 G/DL (5.7-8.2)
[2024-11-27] MEDS ORDERED: HYOSCYAMINE SULFATE 0.125 MG SUBL TABLET PO PRN (08:15)
[2024-11-27] MEDS ORDERED: ATROPINE SULFATE 1% OPHTH SOLN 2ML BTL SL PRN (08:15)
[2024-11-27] MEDS: LORazepam 1 MG TAB PO PRN (09:47)
[2024-11-27] MEDS: MORPHINE 10MG/0.5ML ORAL CONCENTRATE SOLUTION U/D SL PRN (09:47)
[2024-11-28] MEDS: ONDANSETRON 4MG ORAL DISINTEGRATING TAB PO PRN (05:16)
[2024-11-28] MEDS ORDERED: PROMETHAZINE 25MG/ML 1ML VIAL IM ONE (07:00)
[2024-11-28] MEDS: PROMETHAZINE 25 MG TAB PO ONE (07:22)
[2024-11-28] MEDS: PROMETHAZINE 25 MG TAB PO PRN (14:56)
[2024-11-30] MEDS ORDERED: MORP1SOL5 PO (13:08)
[2024-11-30] MEDS ORDERED: HYOS125TA PO (13:08)
[2024-11-30] MEDS ORDERED: ATIV1TAB10 PO (13:08)
== END 2024-11-30 16:50 | disposition hospice, home (50) | DRG 249 ==
LOC: M ED 11:58 → M ED INP 15:25 → M MS5PR 17:15
PROVIDERS: ADMIT Internal Medicine; ATTEND Internal Medicine
DX: R11.2 Nausea with vomiting, unspecified (principal); N17.9 Acute kidney failure, unspecified; C79.51 Secondary malignant neoplasm of bone; C79.31 Secondary malignant neoplasm of brain; C79.72 Secondary malignant neoplasm of left adrenal gland; M84.58XA Pathological fracture in neoplastic disease, other specified site, initial encounter for fracture; N18.30 Chronic kidney disease, stage 3 unspecified; E11.22 Type 2 diabetes mellitus with diabetic chronic kidney disease; R62.7 Adult failure to thrive; E83.52 Hypercalcemia; E11.319 Type 2 diabetes mellitus with unspecified diabetic retinopathy without macular edema; C34.12 Malignant neoplasm of upper lobe, left bronchus or lung; K76.0 Fatty (change of) liver, not elsewhere classified; R54 Age-related physical debility; Z51.5 Encounter for palliative care; Z66 Do not resuscitate; K59.00 Constipation, unspecified; E03.9 Hypothyroidism, unspecified; I12.9 Hypertensive chronic kidney disease with stage 1 through stage 4 chronic kidney disease, or unspecified chronic kidney disease; E78.5 Hyperlipidemia, unspecified; E66.9 Obesity, unspecified; Z87.891 Personal history of nicotine dependence; Z79.4 Long term (current) use of insulin; Z79.899 Other long term (current) drug therapy; Z79.890 Hormone replacement therapy; Z88.5 Allergy status to narcotic agent

== ENCOUNTER → 2024-11-25 | Outpatient (CLI) | payer BC ==
[~2024-11-25] VITALS: Ht 170.2 cm; Wt 69.5 kg
[~2024-11-25] MED LIST changes: +ONDA-282 PO; +OXYC1TAB23 PO; -TRAD5TAB; +TRAD5TAB PO
[2024-11-25 11:48] VITALS: BP 99/70; O2SAT 98
== END ==
LOC: M PAL 11:27
PROVIDERS: ATTEND Physician Assistant
DX: Z51.5 Encounter for palliative care (principal); Z66 Do not resuscitate; C34.90 Malignant neoplasm of unspecified part of unspecified bronchus or lung; C79.51 Secondary malignant neoplasm of bone; Z92.21 Personal history of antineoplastic chemotherapy; Z79.891 Long term (current) use of opiate analgesic

== ENCOUNTER 2024-11-26 12:13 | Outpatient (RCR) | payer BC ==
[~2024-11-26 12:13] MED LIST changes: +ONDA-282 PO; +OXYC1TAB23 PO
[2024-11-30] MEDS ORDERED: MORP1SOL5 PO (13:08)
[2024-11-30] MEDS ORDERED: ATIV1TAB10 PO (13:08)
[2024-11-30] MEDS ORDERED: HYOS125TA PO (13:08)
== END 2024-12-19 | disposition expired ==
LOC: M ONCR 12:13
PROVIDERS: ATTEND General Practice
DX: Z51.0 Encounter for antineoplastic radiation therapy (principal); C79.51 Secondary malignant neoplasm of bone